=== PATIENT | female | born 1980 | race Caucasian/White ===

== ENCOUNTER 2016-05-23 22:48 | Emergency (ER) | payer SELFPAY ==
[2016-05-23] MEDS ORDERED: CYCLOBENZAPRINE HCL 10 MG TAB PO ONE (23:12)
[2016-05-23] MEDS ORDERED: KETOROLAC TROMETHAMINE INJ 30 MG/ML VIAL IM ONE (23:12)
[2016-05-23] MEDS ORDERED: predniSONE 20 MG TAB PO ONE (23:12)
--- NOTE | 2016-05-23 23:15 | ED.PDOC ---
History of Present Illness - General Chief Complaint: Cardiovascular Problem Stated Complaint: chest pain Time Seen by Provider: 05/23/16 22:52 Source: patient Exam Limitations: no limitations - History of Present Illness Initial Comments: The patient is a 35-year-old female presenting with pain in the distribution of the right trapezius muscle present for 3 days and worsening. She has had frequent flares of spasm in this muscle in the past. No recent trauma. No fevers. She has developed a mild headache after 2 days of the muscle spasm. No syncope or near syncope. No neurological changes otherwise. No weakness. Muscle is in obvious spasm almost throughout. Severity: moderate Improving Factors: immobilization Worsening Factors: movement Associated Symptoms: headaches Allergies/Adverse Reactions: Allergies Amoxicillin [From Amoxil] Allergy (Verified 05/23/16 22:50) Penicillins Allergy (Verified 05/23/16 22:50) Home Medications: Ambulatory Orders Sulfa/Trimeth 800/160 (Ds) Tab [Bactrim DS Tab] 1 ea PO BID #20 tab 03/02/15 Rnlmpruhjuuhn-Huxb-Unbnahiemt [Fioricet] 1 ea PO Q8H PRN #21 tab 05/23/16 Cyclobenzaprine HCl [Flexeril] 5 mg PO TID PRN #30 tab 05/23/16 Review of Systems - Review of Systems Constitutional: States: no symptoms reported EENTM: States: no symptoms reported Respiratory: States: no symptoms reported Cardiology: States: no symptoms reported Gastrointestinal/Abdominal: States: no symptoms reported Genitourinary: States: no symptoms reported Musculoskeletal: States: see HPI Skin: States: no symptoms reported Neurological: States: headache All other Systems: No Change from Baseline Past Medical History (General) - Patient Medical History Hx Seizures: No Hx Stroke: No Hx Dementia: No Hx Asthma: Yes Hx of COPD: Yes Hx Cardiac Disorders: No Hx Congestive Heart Failure: No Hx Pacemaker: No Hx Hypertension: Yes Hx Thyroid Disease: No Hx Diabetes: No Hx Gastroesophageal Reflux: No Hx Renal Disease: No Hx Cancer: No Hx of HIV: No Hx Hepatitis C: No Hx MRSA: No - Vaccination History Hx Tetanus, Diphtheria Vaccination: No Hx Influenza Vaccination: No Hx Pneumococcal Vaccination: No - Social History Hx Tobacco Use: Yes Hx Chewing Tobacco Use: No Hx Alcohol Use: Yes Hx Substance Use: Yes Hx Substance Use Treatment: No Hx Depression: Yes Hx Physical Abuse: No Hx Emotional Abuse: No Hx Suspected Abuse: No - Female History Hx Last Menstrual Period: 10/17/14 Patient : No Family Medical History - Family History Mother Living Status: Still Living Hx Family Hypertension: Yes Hx Family Diabetes: Yes - hypoglycemic Hx Family Cancer: Yes Physical Exam - Physical Exam General Appearance: Alert, No apparent distress Eye Exam: bilateral normal Ears, Nose, Throat: normal ENT inspection, normal pharynx Neck: full range of motion, supple, normal inspection Respiratory: chest non-tender, lungs clear, normal breath sounds, no respiratory distress, no accessory muscle use Cardiovascular/Chest: normal peripheral pulses, regular rate, rhythm, no edema Peripheral Pulses: radial,right: 2+, radial,left: 2+ Gastrointestinal/Abdominal: non tender, soft - morbidly obese Rectal Exam: deferred Back Exam: other - see history of present illness. No bruising. No deformity. Trapezius muscle on the right is diffusely tender to palpation with significant spasm present. Difficult to tell if there is underlying rhomboid spasm Extremity: normal range of motion, non-tender, normal inspection, no pedal edema , no calf tenderness, normal capillary refill Neurologic: alert, normal mood/affect, oriented x 3 Skin Exam: normal color Progress - Progress Progress: 05/23/16 23:16 the patient is a 35-year-old female presenting with right-sided trapezius muscle spasm. She was given a dose of Flexeril, Fioricet, Toradol and prednisone. She will be written for an outpatient prescription for Flexeril and Fioricet for as needed use. She can use Aleve twice daily as well with food. She needs to keep well-hydrated. She needs to follow-up with her primary care doctor early this coming week. She does need to stretch out the muscle as best as possible. Topical heat or a warm shower may also help as well. Departure - Departure Clinical Impression: Trapezius muscle spasm Disposition: Discharge to Home or Self Care Condition: Good Departure Forms: ED Discharge - Pt. Copy, Patient Portal Self Enrollment Instructions: DI for Muscle Strain Diet: regular diet Activity: increase activity as tolerated Prescriptions: Bnolckjwxfgwv-Mxko-Dvvvkvsoou [Fioricet] 1 ea PO Q8H PRN #21 tab PRN Reason: Pain Cyclobenzaprine HCl [Flexeril] 5 mg PO TID PRN #30 tab PRN Reason: Muscle Spasms Home Medications: Ambulatory Orders Sulfa/Trimeth 800/160 (Ds) Tab [Bactrim DS Tab] 1 ea PO BID #20 tab 03/02/15 Hdironeupsetn-Mbts-Bnmputiwix [Fioricet] 1 ea PO Q8H PRN #21 tab 05/23/16 Cyclobenzaprine HCl [Flexeril] 5 mg PO TID PRN #30 tab 05/23/16 Additional Instructions: the patient is a 35-year-old female presenting with right-sided trapezius muscle spasm. She was given a dose of Flexeril, Fioricet, Toradol and prednisone. She will be written for an outpatient prescription for Flexeril and Fioricet for as needed use. She can use Aleve twice daily as well with food. She needs to keep well-hydrated. She needs to follow-up with her primary care doctor early this coming week. She does need to stretch out the muscle as best as possible. Topical heat or a warm shower may also help as well.
[2016-05-23] MEDS ORDERED: ACETAMINOPHEN-CAFF-BUTALBITAL 1 EA TAB PO SCH (23:30)
[2016-05-24 00:24] VITALS: BP 140/86; TEMP 98.4; O2SAT 96
== END 2016-05-24 00:24 | disposition home or self-care (01) ==
LOC: ER 22:48
DX: M62.838 Other muscle spasm (principal); Z88.0 Allergy status to penicillin; Z88.3 Allergy status to other anti-infective agents; J44.9 Chronic obstructive pulmonary disease, unspecified; I10 Essential (primary) hypertension; Z87.891 Personal history of nicotine dependence; F32.9 Major depressive disorder, single episode, unspecified
CPT/HCPCS: 93005; J1885; J7512

== ENCOUNTER 2016-06-03 10:18 | Emergency (ER) | payer SELFPAY ==
--- NOTE | 2016-06-03 11:13 | ED.PDOC ---
History of Present Illness - General Chief Complaint: [employer] Problem Stated Complaint: excessive vaginal bleeding Time Seen by Provider: 06/03/16 11:05 Source: patient, RN notes reviewed, Vital Signs reviewed Exam Limitations: no limitations - History of Present Illness Initial Comments: Patient is a 35 y/o [id number] female with a history of BTL who has had heavy vaginal bleeding since yesterday. She is changing her pad about every 30 minutes. When she stands up, the blood gushes out and drains down her legs. She is having suprapubic pain--Severe, although patient is laying in cot comfortably. She does, however, appear to be in mild distress. Patient states her periods are usually regular, although her LMP is 04/09/2016. She had previously been on depo-provera, however her last shot was 2 years ago. She has had regular periods since. Timing/Duration: yesterday Quality: severe, cramping Onset Location: suprapubic Radiation: none Activites at Onset: none Prior abdominal problems: none Sexual intercourse history: less than 2 months ago, single partner Improving Factors: nothing Worsening Factors: movement Associated Symptoms: denies symptoms Allergies/Adverse Reactions: Allergies Amoxicillin [From Amoxil] Allergy (Verified 05/23/16 22:50) Penicillins Allergy (Verified 05/23/16 22:50) Home Medications: Ambulatory Orders Medroxyprogesterone Acetate [Medroxyprogesterone Aceta] 10 mg PO DAILY #10 tab 06/03/16 Naproxen [Naprosyn] 500 mg PO BID #30 tab 06/03/16 Review of Systems - Review of Systems Constitutional: States: no symptoms reported EENTM: States: no symptoms reported Respiratory: States: no symptoms reported Cardiology: States: no symptoms reported Gastrointestinal/Abdominal: States: abdominal pain - pelvic, nausea Genitourinary: States: other - excessive vaginal bleeding Musculoskeletal: States: no symptoms reported Skin: States: no symptoms reported Neurological: States: anxiety, headache Endocrine: States: no symptoms reported Hematologic/Lymphatic: States: no symptoms reported Past Medical History (General) - Patient Medical History Hx Seizures: No Hx Stroke: No Hx Dementia: No Hx Asthma: Yes Hx of COPD: Yes Hx Cardiac Disorders: No Hx Congestive Heart Failure: No Hx Pacemaker: No Hx Hypertension: Yes Hx Thyroid Disease: No Hx Diabetes: No Hx Gastroesophageal Reflux: No Hx Renal Disease: No Hx Cancer: No Hx of HIV: No Hx Hepatitis C: No Hx MRSA: No Surgical History: cholecystectomy - Vaccination History Hx Tetanus, Diphtheria Vaccination: No Hx Influenza Vaccination: No Hx Pneumococcal Vaccination: No - Social History Hx Tobacco Use: Yes Hx Chewing Tobacco Use: No Hx Alcohol Use: Yes Hx Substance Use: Yes Hx Substance Use Treatment: No Hx Depression: Yes Hx Physical Abuse: No Hx Emotional Abuse: No Hx Suspected Abuse: No - Female History Patient is a Female of Child Bearing Age (10 -59 yrs old): Yes Hx Last Menstrual Period: 10/17/14 Patient : No Family Medical History - Family History Mother Family History: Unknown Living Status: Still Living Hx Family Hypertension: Yes Hx Family Diabetes: Yes - hypoglycemic Hx Family Cancer: Yes Physical Exam - Physical Exam General Appearance: Anxious, Obvious distress - Mild, Obese Eyes, Ears, Nose, Throat Exam: normal ENT inspection Neck: full range of motion Cardiovascular/Respiratory: regular rate, rhythm, no M/R/G, normal breath sounds , no respiratory distress Gastrointestinal/Abdominal: normal bowel sounds, soft, no organomegaly, tenderness - suprapubic Pelvic Exam: active bleeding, tender w/ cervical motion, tender adnexa - Left, tender uterus Extremity: normal range of motion, non-tender, normal inspection Neurologic: alert, normal mood/affect, oriented x 3 Skin Exam: normal color, warm/dry Progress - Results/Orders Results/Orders: 06/03/16 10:28 Temperature 98.2 F Pulse Rate [ 83 Right Brachial] Respiratory 20 Rate Blood Pressure 149/110 [Right Arm] O2 Sat by Pulse 99 Oximetry 06/03/16 11:55 GC CHLAMYDIA RNA,TMA Stat Laboratory Results WBC 7.9 K/mm3 (4.8-10.8) 06/03/16 11:25 RBC 4.58 M/mm3 (4.20-5.40) 06/03/16 11:25 Hgb 10.3 gm/dL (12.0-16.0) L 06/03/16 11:25 Hct 32.6 % (36.0-47.0) L 06/03/16 11:25 MCV 71.1 fl (81.0-99.0) L 06/03/16 11:25 MCH 22.4 pg (27.0-31.0) L 06/03/16 11:25 MCHC 31.7 g/dL (33.0-37.0) L 06/03/16 11:25 RDW 17.3 % (11.5-14.5) H 06/03/16 11:25 Plt Count 213 K/mm3 (130-400) 06/03/16 11:25 MPV 8.1 fl (7.40-10.4) 06/03/16 11:25 Absolute Neuts (auto) 5.80 K/uL (1.8-6.8) 06/03/16 11:25 Absolute Lymphs (auto) 1.40 K/uL (1.0-3.4) 06/03/16 11:25 Absolute Monos (auto) 0.60 K/uL (0.2-0.8) 06/03/16 11:25 Absolute Eos (auto) 0.10 K/uL (0.0-0.4) 06/03/16 11:25 Absolute Basos (auto) 0.00 K/uL (0.0-0.1) 06/03/16 11:25 Neutrophils % 73.3 % (42.0-78.0) 06/03/16 11:25 Lymphocytes % 17.6 % (20.0-50.0) L 06/03/16 11:25 Monocytes % 7.1 % (2.0-9.0) 06/03/16 11:25 Eosinophils % 1.5 % (1.0-5.0) 06/03/16 11:25 Basophils % 0.5 % (0.0-2.0) 06/03/16 11:25 Sodium 137 mmol/L (135-145) 06/03/16 11:25 Potassium 3.8 mmol/L (3.6-5.0) 06/03/16 11:25 Chloride 106 mmol/L (101-111) 06/03/16 11:25 Carbon Dioxide 24 mmol/L (21-31) 06/03/16 11:25 Anion Gap 10.8 (12-18) L 06/03/16 11:25 BUN 16 mg/dL (7-18) 06/03/16 11:25 Creatinine 0.74 mg/dL (0.6-1.3) 06/03/16 11:25 BUN/Creatinine Ratio 21.6 (10-20) H 06/03/16 11:25 Random Glucose 82 mg/dL (70-105) 06/03/16 11:25 Serum Osmolality 274.1 mOsm/L (275-295) L 06/03/16 11:25 Calcium 8.7 mg/dL (8.4-10.2) 06/03/16 11:25 Total Bilirubin 0.6 mg/dL (0.2-1.0) 06/03/16 11:25 AST 15 IU/L (10-42) 06/03/16 11:25 ALT 13 IU/L (10-60) 06/03/16 11:25 Alkaline Phosphatase 73 IU/L (42-121) 06/03/16 11:25 Serum Total Protein 7.3 gm/dL (6.4-8.2) 06/03/16 11:25 Albumin 3.9 g/dl (3.2-5.5) 06/03/16 11:25 Globulin 3.4 gm/dL (2.3-3.5) 06/03/16 11:25 Albumin/Globulin Ratio 1.1 (1.1-1.9) 06/03/16 11:25 TSH 2.78 uIU/mL (0.34-5.60) 06/03/16 11:25 Urine Color Yellow (Yellow) 06/03/16 11:55 Urine Appearance Sl cloudy (Clear) 06/03/16 11:55 Urine pH 5.5 (4.5-7.8) 06/03/16 11:55 Ur Specific [place] 1.025 (1.005-1.030) 06/03/16 11:55 Urine Protein Negative mg/dL 06/03/16 11:55 Urine Glucose (UA) Negative mg/dL (Negative) 06/03/16 11:55 Urine Ketones Negative mg/dL (NEGATIVE) 06/03/16 11:55 Urine Blood Trace-intact (Negative) H 06/03/16 11:55 Urine Nitrite Negative 06/03/16 11:55 Urine Bilirubin Negative (NEGATIVE) 06/03/16 11:55 Urine Urobilinogen 0.2 mg/dL (0.2-1.0) 06/03/16 11:55 Ur Leukocyte Esterase Negative (Negative) 06/03/16 11:55 Urine RBC 1-3 /hpf 06/03/16 11:55 Urine WBC 0-1 /hpf 06/03/16 11:55 Ur Epithelial Cells 3-5 /hpf 06/03/16 11:55 Amorphous Sediment 2+ 06/03/16 11:55 Urine Bacteria Rare 06/03/16 11:55 Urine Mucus Moderate 06/03/16 11:55 Urine HCG, Qual Negative 06/03/16 12:49 Departure - Departure Clinical Impression: Dysfunctional uterine bleeding, Pelvic inflammatory disease (PID) Time of Disposition: 14:56 Disposition: Discharge to Home or Self Care Condition: Fair Departure Forms: ED Discharge - Pt. Copy, Patient Portal Self Enrollment Diet: low fat, low cholesterol Referrals: To [facility] MD [Active Staff] - 1-2 Weeks Prescriptions: Medroxyprogesterone Acetate [Medroxyprogesterone Aceta] 10 mg PO DAILY #10 tab Naproxen [Naprosyn] 500 mg PO BID #30 tab Home Medications: Ambulatory Orders Medroxyprogesterone Acetate [Medroxyprogesterone Aceta] 10 mg PO DAILY #10 tab 06/03/16 Naproxen [Naprosyn] 500 mg PO BID #30 tab 06/03/16 Additional Instructions: Follow up for any dizziness, shortness of breath, chest pain, or pelvic pain that is excruciating. Stay well-hydrated. Follow up with [facility] in 1-2 weeks.
[2016-06-03] MEDS: SODIUM CHLORIDE 0.9% 1000ML 1,000 ML IVS ONE (13:48)
[2016-06-03] MEDS: KETOROLAC TROMETHAMINE INJ 30 MG/ML VIAL IV ONE (13:51)
[2016-06-03] MEDS ORDERED: SODIUM CHL 0.9% 50ML MIN-BAG+ 50 ML IVPB ONE (14:01)
[2016-06-03] MEDS: AZITHROMYCIN 250 MG TAB PO ONE (14:04)
[2016-06-03] MEDS: cefTRIAXone SODIUM 250 MG in SODIUM CHL 0.9% 50ML MIN-BAG+ 50 ML IVPB ONE (14:05)
[2016-06-03 15:28] VITALS: BP 138/94; TEMP 97.4; O2SAT 95
== END 2016-06-03 15:41 | disposition home or self-care (01) ==
LOC: ER 10:18
DX: N93.8 Other specified abnormal uterine and vaginal bleeding (principal); N73.9 Female pelvic inflammatory disease, unspecified; J44.9 Chronic obstructive pulmonary disease, unspecified; I10 Essential (primary) hypertension; Z88.0 Allergy status to penicillin; Z88.3 Allergy status to other anti-infective agents; Z87.891 Personal history of nicotine dependence

== ENCOUNTER 2018-01-11 22:16 | Emergency (ER) | payer SELFPAY ==
[2018-01-11 22:37] VITALS: TEMP 98.1; O2SAT 98
[2018-01-11] MEDS ORDERED: CLINDAMYCIN PHOSPHATE 150 MG/ML VIAL IM ONE (23:14)
[2018-01-11] MEDS ORDERED: KETOROLAC TROMETHAMINE INJ 60 MG/2 ML VIAL IM ONE (23:14)
--- NOTE | 2018-01-11 23:18 | ED.PDOC ---
History of Present Illness - General Chief Complaint: Dental/Mouth Stated Complaint: swollen jaw Time Seen by Provider: 01/11/18 23:09 Source: patient Exam Limitations: no limitations - History of Present Illness Initial Comments: R SIDED TOOTHACHE X 2 D. Timing/Duration: gradual Severity: severe EENT Location: mouth Prearrival Treatment: no prearrival treatment Improving Factors: nothing Worsening Factors: eating Associated Symptoms: denies symptoms Allergies/Adverse Reactions: Allergies Amoxicillin [From Amoxil] Allergy (Verified 05/23/16 22:50) Penicillins Allergy (Verified 05/23/16 22:50) Home Medications: Ambulatory Orders Blood Pressure Med 01/11/18 Clindamycin HCl 300 mg PO Q8H 7 Days #21 cap 01/11/18 Gabapentin [Neurontin] 01/11/18 Ibuprofen 800 mg PO TID PRN #21 tab 01/11/18 Review of Systems - Review of Systems Constitutional: States: no symptoms reported EENTM: States: other - TOOTHACHE. Denies: eye pain, ear pain, nose pain, throat pain Respiratory: States: no symptoms reported Cardiology: States: no symptoms reported Gastrointestinal/Abdominal: States: no symptoms reported Genitourinary: States: no symptoms reported Musculoskeletal: States: no symptoms reported Skin: States: no symptoms reported Neurological: States: no symptoms reported Endocrine: States: no symptoms reported Hematologic/Lymphatic: States: no symptoms reported All other Systems: Reviewed and Negative Past Medical History (General) - Patient Medical History Hx Seizures: No Hx Stroke: No Hx Dementia: No Hx Asthma: Yes Hx of COPD: Yes Hx Cardiac Disorders: No Hx Congestive Heart Failure: No Hx Pacemaker: No Hx Hypertension: Yes Hx Thyroid Disease: No Hx Diabetes: No Hx Gastroesophageal Reflux: No Hx Renal Disease: No Hx Cancer: No Hx of HIV: No Hx Hepatitis C: No Hx MRSA: No Surgical History: cholecystectomy - Vaccination History Hx Tetanus, Diphtheria Vaccination: No Hx Influenza Vaccination: No Hx Pneumococcal Vaccination: No Immunizations Up to Date: No - Social History Hx Tobacco Use: Yes Hx Chewing Tobacco Use: No Hx Alcohol Use: Yes Hx Substance Use: Yes Hx Substance Use Treatment: No Hx Depression: Yes Hx Physical Abuse: No Hx Emotional Abuse: No Hx Suspected Abuse: No - Female History Patient is a Female of Child Bearing Age (10 -59 yrs old): Yes Hx Last Menstrual Period: 10/17/14 Patient : No Family Medical History - Family History Mother Family History: Unknown Living Status: Still Living Hx Family Hypertension: Yes Hx Family Diabetes: Yes - hypoglycemic Hx Family Cancer: Yes Physical Exam - Physical Exam General Appearance: Alert, Obese Eye Exam: bilateral normal Ear Exam: bilateral ear: TM normal Nasal Exam: normal inspection Throat Exam: pharynx normal, dental tenderness, other - POOR DENTITION. GENERAL TOOTH DECAY, DENTAL CARIES, AND CHIPPED TEETH THROUGHOUT MOUTH. SPECIFICALLY TONIGHT, R INCISOR TOOTH #7 EXQUISITELY TTP. NO ABSCESS. Neck: non-tender, full range of motion, supple Progress - Progress Progress: 01/11/18 23:26 R INCISOR, TOOTH #7 ACUTE DENTAL CARIES. TOOTHACHE, GENERAL CARIES AND GINGIVITIS. POOR DENTITION. I RECOMMENDED SEEING A DENTIST, LEST SHE WILL START LOSING HER TEETH. Departure - Departure Clinical Impression: Toothache, Dental caries, Gingivitis Disposition: Discharge to Home or Self Care Condition: Good Departure Forms: ED Discharge - Pt. Copy, Patient Portal Self Enrollment Instructions: DI for Dental Pain Diet: resume usual diet Activity: increase activity as tolerated Prescriptions: Clindamycin HCl 300 mg PO Q8H 7 Days #21 cap Ibuprofen 800 mg PO TID PRN #21 tab PRN Reason: Pain Home Medications: Ambulatory Orders Blood Pressure Med 01/11/18 Clindamycin HCl 300 mg PO Q8H 7 Days #21 cap 01/11/18 Gabapentin [Neurontin] 01/11/18 Ibuprofen 800 mg PO TID PRN #21 tab 01/11/18 Additional Instructions: Please see a dentist for further care.
[2018-01-11 23:52] VITALS: BP 166/90
== END 2018-01-11 23:52 | disposition home or self-care (01) ==
LOC: ER 22:16
DX: K02.9 Dental caries, unspecified (principal); K05.10 Chronic gingivitis, plaque induced; F32.9 Major depressive disorder, single episode, unspecified; J44.9 Chronic obstructive pulmonary disease, unspecified; I10 Essential (primary) hypertension; Z87.891 Personal history of nicotine dependence; Z79.899 Other long term (current) drug therapy; Z88.0 Allergy status to penicillin
CPT/HCPCS: J1885; J3490

== ENCOUNTER 2018-05-20 17:35 | Emergency (ER) | payer SELFPAY ==
[2018-05-20 18:00] VITALS: TEMP 97.8; O2SAT 100
[2018-05-20] MEDS ORDERED: LABETALOL INJ 5 MG/ML VIAL IV ONE (18:13)
[2018-05-20] MEDS ORDERED: amLODIPine BESYLATE 5 MG TAB PO ONE (18:13)
--- NOTE | 2018-05-20 18:14 | ED.PDOC ---
History of Present Illness - General Chief Complaint: Blood Pressure Problem Stated Complaint: Elevated BP, headache Time Seen by Provider: 05/20/18 17:55 Source: patient Exam Limitations: no limitations - History of Present Illness Initial Comments: Diane Navarrete 37 y/o female came to ER stateg that she ran out of her blood pressure medications Lisinopril/HCTZ for a month stating could not afford her medications.Today has note blood pressure been up and with dull headache top of head non radiating.No n/v,no blurry vision,no diplopia ,no chest pain /SOB, Timing/Duration: 4-6 hours Severity: moderate Improving Factors: nothing Worsening Factors: nothing Associated Symptoms: headaches Allergies/Adverse Reactions: Allergies Amoxicillin [From Amoxil] Allergy (Verified 05/20/18 18:34) Penicillins Allergy (Verified 05/20/18 18:34) Home Medications: Ambulatory Orders Gabapentin [Neurontin] 300 mg PO TID 01/11/18 Ibuprofen 800 mg PO TID PRN #21 tab 01/11/18 Lisinopril & Hydrochlorothiazi [Lisinopril/Hctz 20-25 mg] 1 tab PO ACBK #30 tab 05/20/18 Lisinopril & Hydrochlorothiazi [Lisinopril/Hctz 20-25 mg] 1 tab PO DAILY 05/20/18 Review of Systems - Review of Systems Constitutional: States: no symptoms reported EENTM: States: no symptoms reported Respiratory: States: no symptoms reported Cardiology: States: no symptoms reported Gastrointestinal/Abdominal: States: no symptoms reported Neurological: States: headache Hematologic/Lymphatic: States: no symptoms reported All other Systems: Reviewed and Negative, No Change from Baseline Past Medical History (General) - Patient Medical History Hx Seizures: No Hx Stroke: No Hx Dementia: No Hx Asthma: Yes Hx of COPD: Yes Hx Cardiac Disorders: No Hx Congestive Heart Failure: No Hx Pacemaker: No Hx Hypertension: Yes Hx Thyroid Disease: No Hx Diabetes: No Hx Gastroesophageal Reflux: No Hx Renal Disease: No Hx Cancer: No Hx of HIV: No Hx Hepatitis C: No Hx MRSA: No Hx Other PMH: Yes - ? neuropathy Surgical History: cholecystectomy, other - ,ankle - Vaccination History Hx Tetanus, Diphtheria Vaccination: No Hx Influenza Vaccination: No Hx Pneumococcal Vaccination: No - Social History Hx Tobacco Use: Yes Years Tobacco Use: 18 Hx Chewing Tobacco Use: No Hx Alcohol Use: Yes Hx Substance Use: Yes Hx Substance Use Treatment: No Hx Depression: Yes Hx Physical Abuse: No Hx Emotional Abuse: No Hx Suspected Abuse: No - Activities of Daily Living Patient Lives Alone: No - Female History Patient is a Female of Child Bearing Age (10 -59 yrs old): Yes Hx Last Menstrual Period: 05/09/18 Patient : No Family Medical History - Family History Mother Family History: Unknown Living Status: Still Living Hx Family Hypertension: Yes Hx Family Diabetes: Yes - hypoglycemic Hx Family Cancer: Yes - mom and sister-cancer cervix Hx Family;Other: chronic anemia-mom ? thallasemia. Physical Exam - Physical Exam General Appearance: Alert, Comfortable, No apparent distress Eye Exam: bilateral normal, bilateral other - optic fundus clear disc margins Ears, Nose, Throat: hearing grossly normal, normal ENT inspection, normal pharynx Neck: non-tender, supple, normal inspection Respiratory: chest non-tender, lungs clear, normal breath sounds, no respiratory distress Cardiovascular/Chest: normal peripheral pulses, regular rate, rhythm, no murmur Peripheral Pulses: radial,right: 2+, radial,left: 2+, dorsalis pedis,right: 2+, dorsalis pedis,left: 2+ Gastrointestinal/Abdominal: normal bowel sounds, non tender, soft, no organomegaly Back Exam: no CVA tenderness, no vertebral tenderness Extremity: no pedal edema, no calf tenderness Neurologic: no motor/sensory deficits, alert, oriented x 3 Skin Exam: normal color, warm/dry Progress - Progress Progress: 05/20/18 18:31 Vital Signs - 8 hr 05/20/18 17:45 Temperature 97.8 F Pulse Rate [ 84 Left Radial] Respiratory 18 Rate Blood Pressure 186/112 [Left Arm] O2 Sat by Pulse 100 Oximetry 05/20/18 19:51 Patient stated that she will be Moving to [place] given # for [facility] - Results/Orders Results/Orders: Vital Signs - 8 hr 05/20/18 05/20/18 17:45 19:12 Temperature 97.8 F Pulse Rate [ 84 88 Left Radial] Respiratory 18 18 Rate Blood Pressure 186/112 163/101 [Left Arm] O2 Sat by Pulse 100 100 Oximetry 05/20/18 18:15 EKG STAT 05/21/18 09:00 hydroCHLOROthiazide 25 mg PO DAILY Laboratory Results - last 24 hr 05/20/18 05/20/18 05/20/18 18:11 18:15 18:15 WBC 7.4 RBC 4.28 Hgb 8.9 L Hct 28.4 L MCV 66.3 L MCH 20.7 L MCHC 31.5 L RDW 17.3 H Plt Count 267 MPV 8.1 Absolute Neuts (auto) 5.70 Absolute Lymphs (auto) 1.10 Absolute Monos (auto) 0.50 Absolute Eos (auto) 0.10 Absolute Basos (auto) 0.00 Neutrophils % 76.6 Lymphocytes % 14.9 L Monocytes % 6.9 Eosinophils % 1.2 Basophils % 0.4 RBC Morphology Plts sharla adequate PT 10.5 INR 1.05 PTT (SP) 24.4 Sodium 135 Potassium 3.6 Chloride 103 Carbon Dioxide 25 Anion Gap 10.6 L BUN 8 Creatinine 0.62 BUN/Creatinine Ratio 12.9 Random Glucose 90 Serum Osmolality 268.0 L Calcium 9.0 Magnesium 2.2 Total Bilirubin 0.9 Direct Bilirubin 0.2 Indirect Bilirubin 0.7 AST 23 ALT 21 Alkaline Phosphatase 81 Creatine Kinase 93 CK-MB (CK-2) 4.5 H CK-MB (CK-2) % Not Reportable Troponin I < 0.02 Serum Total Protein 7.6 Albumin 3.8 Serum HCG, Qual Negative Urine Color Urine Appearance Urine pH Ur Specific [place] Urine Protein Urine Glucose (UA) Urine Ketones Urine Blood Urine Nitrite Urine Bilirubin Urine Urobilinogen Ur Leukocyte Esterase Urine RBC Urine WBC Ur Epithelial Cells Urine Bacteria Urine Opiates Screen Negative Urine Barbiturates Negative Ur Phencyclidine Scrn Negative U Amphetamin/Meth Scrn Positive H U Benzodiazepines Scrn Negative U Cocaine Metab Screen Negative U Cannabinoids Screen Negative 05/20/18 19:23 WBC RBC Hgb Hct MCV MCH MCHC RDW Plt Count MPV Absolute Neuts (auto) Absolute Lymphs (auto) Absolute Monos (auto) Absolute Eos (auto) Absolute Basos (auto) Neutrophils % Lymphocytes % Monocytes % Eosinophils % Basophils % RBC Morphology PT INR PTT (SP) Sodium Potassium Chloride Carbon Dioxide Anion Gap BUN Creatinine BUN/Creatinine Ratio Random Glucose Serum Osmolality Calcium Magnesium Total Bilirubin Direct Bilirubin Indirect Bilirubin AST ALT Alkaline Phosphatase Creatine Kinase CK-MB (CK-2) CK-MB (CK-2) % Troponin I Serum Total Protein Albumin Serum HCG, Qual Urine Color Yellow Urine Appearance Clear Urine pH 7.0 Ur Specific [place] 1.010 Urine Protein Negative Urine Glucose (UA) Negative Urine Ketones Negative Urine Blood Negative Urine Nitrite Negative Urine Bilirubin Negative Urine Urobilinogen 0.2 Ur Leukocyte Esterase Trace H Urine RBC 0-1 Urine WBC 3-5 H Ur Epithelial Cells 3-5 Urine Bacteria Rare Urine Opiates Screen Urine Barbiturates Ur Phencyclidine Scrn U Amphetamin/Meth Scrn U Benzodiazepines Scrn U Cocaine Metab Screen U Cannabinoids Screen Discuss test results with patient and stated that she has anemia which she had when she was 13 y/o and also noted that she has heavy menstrual period;advised to see Consumer Credit Counselor and need to follow with primary Md - EKG/XRAY/CT EKG: Sinus, no ST T wave changes, Unchanged from 23 May 2016 Comments: HR-62;motion artifact CT Ordered: Yes - head-no acute abnormality Departure - Departure Clinical Impression: Hypertension Qualifiers: Hypertension type: unspecified Qualified Code(s): I10 - Essential (primary) hypertension Anemia Qualifiers: Anemia type: iron deficiency Iron deficiency anemia type: unspecified iron deficiency Qualified Code(s): D50.9 - Iron deficiency anemia, unspecified Time of Disposition: 19:49 Disposition: Discharge to Home or Self Care Condition: Fair Departure Forms: ED Discharge - Pt. Copy, Patient Portal Self Enrollment Instructions: DI for High Blood Pressure, Beta Thalassemia Major, Anemia Caused by Low Iron, Anemia Caused by Low Iron, Adult (DC) Prescriptions: Lisinopril & Hydrochlorothiazi [Lisinopril/Hctz 20-25 mg] 1 tab PO ACBK #30 tab Home Medications: Ambulatory Orders Gabapentin [Neurontin] 300 mg PO TID 01/11/18 Ibuprofen 800 mg PO TID PRN #21 tab 01/11/18 Lisinopril & Hydrochlorothiazi [Lisinopril/Hctz 20-25 mg] 1 tab PO ACBK #30 tab 05/20/18 Lisinopril & Hydrochlorothiazi [Lisinopril/Hctz 20-25 mg] 1 tab PO DAILY 05/20/18 Additional Instructions: Sign up with primary Md at [facility] [facility] [place] [address] ph# [phone] if moving to [place], [place];Return to ER as needed
[2018-05-20] MEDS ORDERED: LISINOPRIL 10 MG TAB PO ONE (19:05)
[2018-05-20] MEDS ORDERED: hydroCHLOROthiazide 25 MG TAB ONE (19:14)
--- NOTE | 2018-05-20 19:35 | CT ---
EXAM DESCRIPTION: Head CLINICAL HISTORY: 37 years Female headache/HBP COMPARISON: CT head 12/10/2010 TECHNIQUE: Contiguous axial images of the brain were obtained without the administration of intravenous contrast. This exam was performed according to our departmental dose-optimization program, which includes automated exposure control, adjustment of the mA and/or kV according to patient size and/or use of iterative reconstruction technique. Motion artifact mildly compromises some images. FINDINGS: The ventricles are normal in size and configuration. No intracerebral or extracerebral mass lesions are identified. There is mild prominence of sulci, cerebellar folia, and basilar cisterns as well as moderate prominence of the frontal subarachnoid spaces or a patient of this age. Underwood/white matter distinction is maintained. There is no shift of the midline structures. There is no evidence of intracranial hemorrhage. There is no evidence of acute territorial infarct. (It should be noted that acute infarct may not be discernible in the first [address] ) A tiny hypodensity along the caudal aspect of the left lentiform nucleus may represent a remote tiny lacunar infarct or prominent perivascular space. It was present on the previous study. There is atherosclerotic calcification in the siphon of the left internal carotid artery. There is no acute calvarial abnormality. There is a polypoid focus in the right maxillary sinus consistent with a benign sinus mucous retention cyst, polyp or polypoid mucosal thickening. Minimal mucosal thickening is also evident in the left maxillary sinus The remainder of the visualized paranasal sinuses are clear. The mastoids and middle ears are clear. IMPRESSION: No acute intracranial abnormality. (It should be noted that acute infarct may not be discernible in the first [address]) a follow-up head ct or mri is recommended if neurologic symptoms persist. Volume loss, greater than expected for age, can occur in patient's with history of alcohol abuse or chronic use of certain medications such as dilantin. ASVD. Remainder of findings as discussed above. Electronically signed by: Sandra Arechiga MD 05/20/2018 7:32 PM BACTERIOLOGY TEACHER
[2018-05-20 20:09] VITALS: BP 181/106
[2018-05-21] MEDS ORDERED: hydroCHLOROthiazide 25 MG TAB PO SCH (09:00)
== END 2018-05-20 20:08 | disposition home or self-care (01) ==
LOC: ER 17:35
DX: I10 Essential (primary) hypertension (principal); D50.9 Iron deficiency anemia, unspecified; R51 Headache; F32.9 Major depressive disorder, single episode, unspecified; J44.9 Chronic obstructive pulmonary disease, unspecified; Z87.891 Personal history of nicotine dependence; Z88.0 Allergy status to penicillin; Z79.899 Other long term (current) drug therapy

== ENCOUNTER 2018-10-14 12:06 | Emergency (ER) | payer SELFPAY ==
[2018-10-14] MEDS ORDERED: MORPHINE SULFATE INJ 10 MG/ML VIAL IV ONE (13:13)
[2018-10-14] MEDS ORDERED: ONDANSETRON INJ 4 MG/2 ML VIAL IV ONE (13:13)
--- NOTE | 2018-10-14 13:28 | ED.PDOC ---
History of Present Illness - General Chief Complaint: Problem Stated Complaint: left flank pain, nausea Time Seen by Provider: 10/14/18 12:43 Source: patient, RN notes reviewed, Vital Signs reviewed Exam Limitations: no limitations - History of Present Illness Initial Comments: 38 yo female c/o left flank pain beginning today. No radiation or previous episodes. No aggravating or alleviating factors. Dysuria. Timing/Duration: this morning Quality: severe, aching, dull, steady Onset Location: left flank Radiation: none Activites at Onset: none Prior abdominal problems: none Improving Factors: nothing Worsening Factors: nothing Associated Symptoms: dysuria, nausea/vomiting Allergies/Adverse Reactions: Allergies Amoxicillin [From Amoxil] Allergy (Verified 05/20/18 18:34) Penicillins Allergy (Verified 05/20/18 18:34) Home Medications: Ambulatory Orders Gabapentin [Neurontin] 300 mg PO TID 01/11/18 Ibuprofen 800 mg PO TID PRN #21 tab 01/11/18 Lisinopril & Hydrochlorothiazi [Lisinopril/Hctz 20-25 mg] 1 tab PO ACBK #30 tab 05/20/18 Lisinopril & Hydrochlorothiazi [Lisinopril/Hctz 20-25 mg] 1 tab PO DAILY 05/20/18 Nitrofurantoin Monohydrate Mac [Macrobid] 100 mg PO BID 7 Days #14 capsule 10/14/18 Tramadol HCl 50 mg PO Q8H PRN 3 Days #9 tab 10/14/18 Review of Systems - Review of Systems Constitutional: States: no symptoms reported EENTM: States: no symptoms reported Respiratory: States: no symptoms reported Cardiology: States: no symptoms reported Gastrointestinal/Abdominal: States: see HPI Genitourinary: States: see HPI Musculoskeletal: States: see HPI Skin: States: no symptoms reported Neurological: States: no symptoms reported Hematologic/Lymphatic: States: no symptoms reported Past Medical History (General) - Patient Medical History Hx Seizures: No Hx Stroke: No Hx Dementia: No Hx Asthma: Yes Hx of COPD: Yes Hx Cardiac Disorders: No Hx Congestive Heart Failure: No Hx Pacemaker: No Hx Hypertension: Yes Hx Thyroid Disease: No Hx Diabetes: No Hx Gastroesophageal Reflux: No Hx Renal Disease: No Hx Cancer: No Hx of HIV: No Hx Hepatitis C: No Hx MRSA: No Surgical History: other - Vaccination History Hx Tetanus, Diphtheria Vaccination: No Hx Influenza Vaccination: No Hx Pneumococcal Vaccination: No - Social History Hx Tobacco Use: Yes Hx Chewing Tobacco Use: No Hx Alcohol Use: Yes Hx Substance Use: Yes Hx Substance Use Treatment: No Hx Depression: Yes Hx Physical Abuse: No Hx Emotional Abuse: No Hx Suspected Abuse: No - Female History Hx Last Menstrual Period: 05/09/18 Patient : No Family Medical History - Family History Mother Family History: Unknown Living Status: Still Living Hx Family Hypertension: Yes Hx Family Diabetes: Yes - hypoglycemic Hx Family Cancer: Yes - mom and sister-cancer cervix Hx Family;Other: chronic anemia-mom ? thallasemia. Physical Exam - Physical Exam General Appearance: Alert, No apparent distress, Other - uncomfortable Eyes, Ears, Nose, Throat Exam: normal ENT inspection Neck: supple Cardiovascular/Respiratory: regular rate, rhythm, no M/R/G, normal breath sounds, no respiratory distress Gastrointestinal/Abdominal: soft, no organomegaly Back Exam: CVA tenderness (L) Extremity: normal range of motion, normal inspection Neurologic: no motor/sensory deficits, alert, normal mood/affect, oriented x 3 Skin Exam: normal color, warm/dry Progress - Progress Progress: 10/14/18 16:05 Asleep. Says feeling much better. Will send urine culture. Macrobid. PCP f/u. - Results/Orders Results/Orders: WBC 8 UA: + WBCs, RBCs, LE; nit negative - EKG/XRAY/CT CT: No stone or pyelo. Does have a lung nodule. CT Ordered: Yes Departure - Departure Clinical Impression: Nodule of left lung Urinary tract infection Qualifiers: Urinary tract infection type: acute cystitis Hematuria presence: without hematuria Qualified Code(s): N30.00 - Acute cystitis without hematuria Back pain Qualifiers: Back pain location: low back pain Chronicity: acute Back pain laterality: left Sciatica presence: without sciatica Qualified Code(s): M54.5 - Low back pain Time of Disposition: 16:08 Disposition: Discharge to Home or Self Care Condition: Good Departure Forms: ED Discharge - Pt. Copy, Patient Portal Self Enrollment Instructions: DI for Urinary Tract Infection (UTI), Pulmonary Nodule Referrals: Bernice Bianchi CLINICAL SUPPORT MANAGER [Nurse Practitioner] - 10/19/18 Prescriptions: Nitrofurantoin Monohydrate Mac [Macrobid] 100 mg PO BID 7 Days #14 capsule Tramadol HCl 50 mg PO Q8H PRN 3 Days #9 tab PRN Reason: Moderate Pain Home Medications: Ambulatory Orders Gabapentin [Neurontin] 300 mg PO TID 01/11/18 Ibuprofen 800 mg PO TID PRN #21 tab 01/11/18 Lisinopril & Hydrochlorothiazi [Lisinopril/Hctz 20-25 mg] 1 tab PO ACBK #30 tab 05/20/18 Lisinopril & Hydrochlorothiazi [Lisinopril/Hctz 20-25 mg] 1 tab PO DAILY 05/20/18 Nitrofurantoin Monohydrate Mac [Macrobid] 100 mg PO BID 7 Days #14 capsule 10/14/18 Tramadol HCl 50 mg PO Q8H PRN 3 Days #9 tab 10/14/18
[2018-10-14] MEDS ORDERED: SODIUM CHLORIDE 0.9% 1000ML 1,000 ML IVS ONE (13:57)
--- NOTE | 2018-10-14 15:29 | CT ---
EXAM DESCRIPTION: Abdomen/Pelvis w/o Contrast: Computed Tomography. CLINICAL HISTORY: 38 years Female left flank pain. Started this morning. UTI. COMPARISON: CT scan abdomen and pelvis 12/02/2014. TECHNIQUE: Spiral-axial scans 5 x 5 mm intervals through the abdomen and pelvis without oral or IV contrast. Coronal and sagittal 2.0 mm reconstructions. Total Exam DLP: 945.51 mGy-cm. This exam was performed according to our departmental CT dose-optimization program which includes automated exposure control, adjustment of the mA and/or kV according to patient size and/or use of iterative reconstruction technique; to reduce radiation dose to as low as reasonably achievable (ALARA). FINDINGS: Lung bases and pleura: Calcified nodule less than 3 mm diameter left lower lobe abutting the pleura. Liver, stomach, spleen, and adrenal glands: Long axis right lobe liver 18.1 cm. Long axis of the spleen is 15.6 cm. Spleen is slightly more enlarged since the prior study. Other organs are negative. Pancreas, Gallbladder, and Ducts: Pancreas is difficult to visualize due to lack of surrounding fat. Surgical clips in the gallbladder fossa. Minimal dilation of the common bile duct. Kidneys and Ureters: Negative. Mesentery: Difficult to evaluate in the abdomen due to close proximity of the abdominal organs. No free fluid or free air. Aorta: Normal caliber of the outer lazo. Minimal periaortic fat. Small Bowel: Minimal fluid and gas throughout.. Distally more fluid with small air-fluid levels. Terminal Ileum/Cecum: Normal caliber. Cecum distended with gas. Appendix normal caliber containing mostly gas. No fatty stranding or fascial thickening. Colon : mostly fecal matter throughout the entire length with no significant distention and no air-fluid levels. Minimal distention proximally by gas. Pelvic Organs: Uterus not retroverted. Fluid in the endometrial cavity and the cervix. 2 cm cystic structure in the adnexa. Right ovary not well seen. Minimal fluid in the cul-de-sac. Minimal bladder wall thickening with no calcifications. Spine and Bony Pelvis: Minimal spondylosis in the included thoracic spine. Abdominal Wall/Back Soft Tissues: Small bilateral fatty inguinal hernias not containing bowel. IMPRESSION: 1. No radiodense stones in the bilateral kidneys ureters or in the urinary bladder. No hydronephrosis or hydroureter bilaterally. Bladder wall thickening which could represent cystitis. 2. Minimal distention of the distal small bowel with small air-fluid levels which may be due to small bowel enteritis. No free fluid. 3. 2 cm cyst in the left adnexa presumed to be within the ovary. Right ovary not well seen. Normal position of the uterus with minimal fluid in the cul-de-sac. 4. Liver and spleen are not enlarged. Spleen slightly larger than on the prior study. Electronically signed by: Tanmay Pak MD 10/14/2018 3:27 PM CDT
[2018-10-14 16:46] VITALS: BP 140/81; TEMP 97.1; O2SAT 100
== END 2018-10-14 16:40 | disposition home or self-care (01) ==
LOC: ER 12:06
DX: N30.00 Acute cystitis without hematuria (principal); M54.5 Low back pain; R91.1 Solitary pulmonary nodule; R11.2 Nausea with vomiting, unspecified; F32.9 Major depressive disorder, single episode, unspecified; J44.9 Chronic obstructive pulmonary disease, unspecified; I10 Essential (primary) hypertension; Z87.891 Personal history of nicotine dependence; Z79.899 Other long term (current) drug therapy; Z88.0 Allergy status to penicillin
CPT/HCPCS: 36415; 74176; 80053; 81001; 81025; 85025; 87086; J2270; J2405; J7030

== ENCOUNTER 2019-01-08 10:28 | Emergency (ER) | payer SELFPAY ==
--- NOTE | 2019-01-08 10:52 | ED.PDOC ---
History of Present Illness - General Chief Complaint: Abdominal Pain Stated Complaint: right sided abd pain,ear pain Time Seen by Provider: 01/08/19 10:36 - History of Present Illness Initial Comments: Pt is a 38 yo female with PSH of lap melia and ventral hernia repair that presents with family for RLQ pain that has been constant since last night. Pain is worse lying flat. Denies fever, NVD, dysuria, hematuria, frequency. States her LMP was 5 weeks ago and has been having irregular menstrual cycles. Also reports 1 week h/o left upper tooth pain and left ear pain. Denies fever, sore throat, congestion or cough. Has used Oragel on tooth with some improvement. Review of Systems - Review of Systems Constitutional: Denies: chills, fever, weakness EENTM: States: ear pain. Denies: eye pain, ear discharge, nose pain, nose congestion, throat pain, throat swelling Respiratory: Denies: cough, short of breath, wheezing Cardiology: Denies: chest pain, edema, syncope Gastrointestinal/Abdominal: States: abdominal pain. Denies: diarrhea, nausea, vomiting Genitourinary: Denies: dysuria, frequency, hematuria Musculoskeletal: Denies: back pain, joint pain All other Systems: Reviewed and Negative Past Medical History (General) - Patient Medical History Hx Seizures: No Hx Stroke: No Hx Dementia: No Hx Asthma: Yes Hx of COPD: Yes Hx Cardiac Disorders: No Hx Congestive Heart Failure: No Hx Pacemaker: No Hx Hypertension: Yes Hx Thyroid Disease: No Hx Diabetes: No Hx Gastroesophageal Reflux: No Hx Renal Disease: No Hx Cancer: No Hx of HIV: No Hx Hepatitis C: No Hx MRSA: No Surgical History: cholecystectomy - Vaccination History Hx Tetanus, Diphtheria Vaccination: No Hx Influenza Vaccination: No Hx Pneumococcal Vaccination: No - Social History Hx Tobacco Use: Yes Hx Chewing Tobacco Use: No Hx Alcohol Use: Yes Hx Substance Use: Yes Hx Substance Use Treatment: No Hx Depression: Yes Hx Physical Abuse: No Hx Emotional Abuse: No Hx Suspected Abuse: No - Female History Patient is a Female of Child Bearing Age (10 -59 yrs old): Yes Hx Last Menstrual Period: 05/09/18 Patient : No Family Medical History - Family History Mother Family History: Unknown Living Status: Still Living Hx Family Hypertension: Yes Hx Family Diabetes: Yes - hypoglycemic Hx Family Cancer: Yes - mom and sister-cancer cervix Hx Family;Other: chronic anemia-mom ? thallasemia. Physical Exam - Physical Exam General Appearance: Alert, No apparent distress, Obese, Well Hydrated Eyes, Ears, Nose, Throat Exam: TMs normal, pharynx normal, other - pt has multiple decayed teeth. left upper molar is TTP. No abscess seen. External ear canals have no erythema or edema Neck: full range of motion, supple Respiratory: lungs clear, normal breath sounds, no accessory muscle use Cardiovascular/Chest: regular rate, rhythm, no edema Gastrointestinal/Abdominal: soft, other - TTP RLQ. No guarding or rebound. No palpable masses Back Exam: no CVA tenderness Extremity: normal range of motion, non-tender, no calf tenderness Neurologic: alert, normal mood/affect Skin Exam: normal color, warm/dry Progress - Progress Progress: 01/08/19 10:55 Luther Issa #[id number] 01/08/19 11:54 Pt presents with RLQ pain for 24 hours and right toothache. CT orered to evaluate for appendicitis vs other infection and is unremarkable. Labs and VS reassuring. Pain is improved and tolerating po fluids well. Will treat for dental infection and f/u with dentist within 1 week for definitive care. Abdominal return precautions given and will f/u with PCP and GI for continued evaluation. SRP given. Departure - Departure Clinical Impression: Dental caries, Toothache Abdominal pain Qualifiers: Abdominal location: right lower quadrant Qualified Code(s): R10.31 - Right lower quadrant pain Time of Disposition: 11:59 Disposition: Discharge to Home or Self Care Condition: Good Departure Forms: ED Discharge - Pt. Copy, Patient Portal Self Enrollment Instructions: DI for Abdominal Pain-Adult, Dental Pain (DC) Prescriptions: Acetaminophen W/ Codeine [Tylenol W/ CODEINE #3] 1 tablet PO Q6HR PRN #12 PRN Reason: Pain Clindamycin HCl [Cleocin] 300 mg PO Q6H 10 Days #40 capsule Home Medications: Ambulatory Orders Acetaminophen W/ Codeine [Tylenol W/ CODEINE #3] 1 tablet PO Q6HR PRN #12 01/08/19 Clindamycin HCl [Cleocin] 300 mg PO Q6H 10 Days #40 capsule 01/08/19 NK 01/08/19
[2019-01-08] MEDS: SODIUM CHLORIDE 0.9% 1000ML 1,000 ML IVS ONE (10:56)
[2019-01-08] MEDS: MORPHINE SULFATE INJ 10 MG/ML VIAL IV ONE (10:57)
[2019-01-08] MEDS: ONDANSETRON INJ 4 MG/2 ML VIAL IV ONE (10:57)
--- NOTE | 2019-01-08 11:49 | CT ---
CT ABDOMEN PELVIS WITHOUT IV CONTRAST Exam date: 01/08/2019 11:04 AM CDT Comparison: CT abdomen pelvis October 14, 2018 Indication: Right lower quadrant abdominal pain Technique: Multiple helical axial images were obtained through the abdomen and pelvis without intravenous contrast. Sagittal and coronal reformatted images are reviewed as well. All CT scans at this facility use dose modulation, iterative reconstruction, and/or weight-based dosing when appropriate to reduce radiation dose to as low as reasonably achievable. Findings: Lung bases: Unremarkable. Liver: Homogenous attenuation is demonstrated. Gallbladder/biliary: Cholecystectomy changes are again demonstrated. Mild prominence of the common bile duct is again noted which is nonspecific in the setting of prior cholecystectomy. Pancreas: Unremarkable. Spleen: Spleen measures 14.9 cm longitudinally and appears mildly enlarged, unchanged from prior study. Adrenals: Unremarkable. Kidneys and ureters: No evidence of renal or ureteral stones. No hydronephrosis. Bladder: Unremarkable. Pelvic organs: There is a 2.3 cm left ovarian cyst which is likely physiologic. Bowel: Colonic diverticula are present. No evidence of bowel obstruction. No bowel wall thickening. Appendix appears unremarkable. Peritoneum: No free air. No significant free fluid. Lymph nodes: Unremarkable. Vasculature: Unremarkable. Soft tissues: Unremarkable. Bones: Unremarkable. Impression: 1. No evidence for an acute process within the abdomen or pelvis. 2. Mildly enlarged spleen. Electronically signed by: Don Sutton MD 01/08/2019 11:46 AM CDT
[2019-01-08 12:25] VITALS: BP 169/80; TEMP 96.7; O2SAT 99
== END 2019-01-08 12:08 | disposition home or self-care (01) ==
LOC: ER 10:28
DX: R10.31 Right lower quadrant pain (principal); K02.9 Dental caries, unspecified; E66.9 Obesity, unspecified; I10 Essential (primary) hypertension; F32.9 Major depressive disorder, single episode, unspecified; J44.9 Chronic obstructive pulmonary disease, unspecified; Z90.49 Acquired absence of other specified parts of digestive tract; Z87.891 Personal history of nicotine dependence; Z68.34 Body mass index [BMI] 34.0-34.9, adult
CPT/HCPCS: 36415; 74176; 80053; 81001; 81025; 83690; 85025; J2270; J2405; J7030

== ENCOUNTER 2019-01-25 17:06 | Emergency (ER) | payer SELFPAY ==
[2019-01-25 17:19] VITALS: O2SAT 99
[2019-01-25] MEDS ORDERED: ONDANSETRON ODT 8 MG TAB SL ONE (17:22)
[2019-01-25] MEDS ORDERED: HYDROcodone 7.5MG/APAP 325MG 1 EA TAB PO ONE (17:22)
[2019-01-25] MEDS ORDERED: KETOROLAC TROMETHAMINE INJ 30 MG/ML VIAL IM ONE (17:22)
[2019-01-25] MEDS ORDERED: levoFLOXacin 500 MG TAB PO ONE (17:23)
[2019-01-25] MEDS ORDERED: predniSONE 20 MG TAB PO ONE (17:23)
--- NOTE | 2019-01-25 18:44 | ED.PDOC ---
History of Present Illness - General Chief Complaint: General Stated Complaint: headache, nausea, facial swelling Time Seen by Provider: 01/25/19 17:07 Source: patient Exam Limitations: no limitations - History of Present Illness Initial Comments: the patient is a 38-year-old female presenting to the emergency room secondary to left-sided facial swelling over the left maxillary sinus and nasal labial fold that started last night along with a mild headache which has progressed today and some associated nausea. No definite fevers. She does have multiple dental caries in the area that had been giving her pain. No vision changes. She does have the classic allergic shiner. No altered mental status. No nuchal rigidity. Lungs are clear. No abdominal tenderness to palpation. No rebound or peritoneal signs. Timing/Duration: 24 hours Severity: moderate Improving Factors: nothing Worsening Factors: nothing Associated Symptoms: headaches, loss of appetite, nausea/vomiting Allergies/Adverse Reactions: Allergies Amoxicillin [From Amoxil] Allergy (Verified 05/20/18 18:34) Penicillins Allergy (Verified 05/20/18 18:34) Home Medications: Ambulatory Orders Ondansetron Odt [Zofran ODT] 4 mg PO Q8HR PRN #5 tab 01/25/19 Sulfa/Trimeth 800/160 (Ds) Tab [Bactrim DS Tab] 1 ea PO BID #14 tab 01/25/19 levoFLOXacin [Levaquin] 500 mg PO DAILY #7 tab 01/25/19 Review of Systems - Review of Systems Constitutional: States: malaise EENTM: States: nose congestion, mouth pain Respiratory: States: no symptoms reported Cardiology: States: no symptoms reported Gastrointestinal/Abdominal: States: nausea Genitourinary: States: no symptoms reported Musculoskeletal: States: no symptoms reported Skin: States: no symptoms reported Neurological: States: headache Endocrine: States: no symptoms reported All other Systems: No Change from Baseline Past Medical History (General) - Patient Medical History Hx Seizures: No Hx Stroke: No Hx Dementia: No Hx Asthma: Yes Hx of COPD: Yes Hx Cardiac Disorders: No Hx Congestive Heart Failure: No Hx Pacemaker: No Hx Hypertension: Yes Hx Thyroid Disease: No Hx Diabetes: No Hx Gastroesophageal Reflux: No Hx Renal Disease: No Hx Cancer: No Hx of HIV: No Hx Hepatitis C: No Hx MRSA: No Surgical History: cholecystectomy, other - Vaccination History Hx Tetanus, Diphtheria Vaccination: No Hx Influenza Vaccination: No Hx Pneumococcal Vaccination: No - Social History Hx Tobacco Use: Yes Hx Chewing Tobacco Use: No Hx Alcohol Use: Yes Hx Substance Use: Yes Hx Substance Use Treatment: No Hx Depression: Yes Hx Physical Abuse: No Hx Emotional Abuse: No Hx Suspected Abuse: No - Female History Patient is a Female of Child Bearing Age (10 -59 yrs old): No Hx Last Menstrual Period: 05/09/18 Patient : No Family Medical History - Family History Mother Family History: Unknown Living Status: Still Living Hx Family Hypertension: Yes Hx Family Diabetes: Yes - hypoglycemic Hx Family Cancer: Yes - mom and sister-cancer cervix Hx Family;Other: chronic anemia-mom ? thallasemia. Physical Exam - Physical Exam General Appearance: Alert, No apparent distress - she does appear uncomfortable. Eye Exam: bilateral normal Ears, Nose, Throat: hearing grossly normal, normal pharynx, other - nares are red with clear rhinorrhea. She does have tenderness to palpation of the left maxillary sinus and some induration over the left nasolabial fold. She does have multiple dental caries causing her discomfort. 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 This is likely coming from an underlying maxillary sinusitis from dental caries. I believe this is also giving her her GI symptoms. She needs to keep herself well hydrated. She is going to be placed on Bactrim and Levaquin to cover for the infection issues. She needs to take these medications with food. She will also be written for Zofran to control any nausea. She can take some [id number] Pepcid as well for the next week or 2 to prevent further stomach upset from the medications. ER warnings are given for any significant worsening. She does need to see a dentist. Keep routine follow up with primary care doctor otherwise. gus [email or web address] [phone] Departure - Departure Clinical Impression: Facial cellulitis, Infected dental caries Gastritis Qualifiers: Gastritis type: unspecified gastritis Chronicity: acute Gastritis bleeding: without bleeding Qualified Code(s): K29.00 - Acute gastritis without bleeding Sinusitis Qualifiers: Sinusitis location: maxillary Chronicity: acute Disposition: Discharge to Home or Self Care Condition: Fair Departure Forms: ED Discharge - Pt. Copy, Patient Portal Self Enrollment Instructions: Cellulitis (Skin Infection), Child (DC), Tooth Decay, Adult (DC), Sinus Headache (DC), Sinusitis, Adult (DC) Diet: bland diet Activity: increase activity as tolerated Prescriptions: Ondansetron Odt [Zofran ODT] 4 mg PO Q8HR PRN #5 tab PRN Reason: Nausea--Moderate levoFLOXacin [Levaquin] 500 mg PO DAILY #7 tab Sulfa/Trimeth 800/160 (Ds) Tab [Bactrim DS Tab] 1 ea PO BID #14 tab Home Medications: Ambulatory Orders Ondansetron Odt [Zofran ODT] 4 mg PO Q8HR PRN #5 tab 01/25/19 Sulfa/Trimeth 800/160 (Ds) Tab [Bactrim DS Tab] 1 ea PO BID #14 tab 01/25/19 levoFLOXacin [Levaquin] 500 mg PO DAILY #7 tab 01/25/19 Additional Instructions: the patient is a 38-year-old female presenting to the emergency room secondary to a progressing mild facial cellulitis to the left nasolabial fold. This is likely coming from an underlying maxillary sinusitis from dental caries. I believe this is also giving her her GI symptoms. She needs to keep herself well hydrated. She is going to be placed on Bactrim and Levaquin to cover for the infection issues. She needs to take these medications with food. She will also be written for Zofran to control any nausea. She can take some [id number] Pepcid as well for the next week or 2 to prevent further stomach upset from the medications. ER warnings are given for any significant worsening. She does need to see a dentist. Keep routine follow up with primary care doctor otherwise. Motrin or Tylenol can be used for discomfort.
[2019-01-25 19:04] VITALS: BP 142/84; TEMP 98
== END 2019-01-25 19:04 | disposition home or self-care (01) ==
LOC: ER 17:06
DX: L03.211 Cellulitis of face (principal); K04.7 Periapical abscess without sinus; K02.9 Dental caries, unspecified; K29.00 Acute gastritis without bleeding; J01.00 Acute maxillary sinusitis, unspecified; F32.9 Major depressive disorder, single episode, unspecified; J44.9 Chronic obstructive pulmonary disease, unspecified; I10 Essential (primary) hypertension; Z87.891 Personal history of nicotine dependence; Z90.49 Acquired absence of other specified parts of digestive tract; Z88.0 Allergy status to penicillin
CPT/HCPCS: J1885; J7512

== ENCOUNTER 2019-04-17 13:26 | Emergency (ER) | payer SELFPAY ==
--- NOTE | 2019-04-17 14:05 | ED.PDOC ---
History of Present Illness - General Chief Complaint: General Time Seen by Provider: 04/17/19 14:00 Additional Information: The patient is a 38 year old F who presents to the ED complaining of facial pain and swelling. She reports that she has had nasal congestion for a week or so, symptoms worsened yesterday while at work when she developed worsening facial pain and swelling. She has been afebrile, denies dental pain. No headache, nausea/vomiting, shortness of breath or any other symptoms at this time. - History of Present Illness Timing/Duration: other - 2 days Severity: moderate Improving Factors: nothing Worsening Factors: nothing Associated Symptoms: other - facial pain Allergies/Adverse Reactions: Allergies Amoxicillin [From Amoxil] Allergy (Verified 05/20/18 18:34) Penicillins Allergy (Verified 05/20/18 18:34) Sulfa Antibiotics Allergy (Verified 04/17/19 13:52) Home Medications: Ambulatory Orders Acetamin W/Cod #3 Tab [Tylenol w/CODEINE #3] 1 ea PO Q4H PRN #20 tab 04/17/19 Clindamycin HCl 300 mg PO Q6HR 7 Days cap 04/17/19 Sertraline HCl [Zoloft] mg PO DAILY 04/17/19 Review of Systems - Review of Systems Constitutional: Denies: chills, fever EENTM: States: nose pain, nose congestion, other - sinus tenderness; facial pain Respiratory: Denies: cough, short of breath Cardiology: States: no symptoms reported Gastrointestinal/Abdominal: States: no symptoms reported Genitourinary: States: no symptoms reported Musculoskeletal: States: no symptoms reported Skin: States: no symptoms reported Neurological: States: no symptoms reported Endocrine: States: no symptoms reported Hematologic/Lymphatic: States: no symptoms reported All other Systems: Reviewed and Negative Past Medical History (General) - Patient Medical History Hx Seizures: No Hx Stroke: No Hx Dementia: No Hx Asthma: Yes Hx of COPD: Yes Hx Cardiac Disorders: No Hx Congestive Heart Failure: No Hx Pacemaker: No Hx Hypertension: Yes Hx Thyroid Disease: No Hx Diabetes: No Hx Gastroesophageal Reflux: No Hx Renal Disease: No Hx Cancer: No Hx of HIV: No Hx Hepatitis C: No Hx MRSA: No - Vaccination History Hx Tetanus, Diphtheria Vaccination: No Hx Influenza Vaccination: No Hx Pneumococcal Vaccination: No - Social History Hx Tobacco Use: Yes Hx Chewing Tobacco Use: No Hx Alcohol Use: Yes Hx Substance Use: Yes Hx Substance Use Treatment: No Hx Depression: Yes Hx Physical Abuse: No Hx Emotional Abuse: No Hx Suspected Abuse: No - Female History Hx Last Menstrual Period: 05/09/18 Patient : No Family Medical History - Family History Mother Family History: Unknown Living Status: Still Living Hx Family Hypertension: Yes Hx Family Diabetes: Yes - hypoglycemic Hx Family Cancer: Yes - mom and sister-cancer cervix Hx Family;Other: chronic anemia-mom ? thallasemia. Physical Exam - Physical Exam General Appearance: Alert, No apparent distress, Well Developed, Well Hydrated, Well Nourished Eye Exam: left other - mild periorbital edema, no erythema or induration Ears, Nose, Throat: hearing grossly normal, sinus pain/drainage - left maxillary sinus tenderness Neck: non-tender, full range of motion, supple, normal inspection Respiratory: lungs clear, no respiratory distress Neurologic: alert, normal mood/affect, oriented x 3 Progress - Progress Progress: 04/17/19 14:17 MDM Patient presents with left facial swelling and pain concerning for cellulitis. There is left maxillary sinus tenderness and there is poor dentition. She does not have any drainable fluid collection in the oropharynx, there is no swelling to the floor of the mouth or airway compromise. left face is diffusely edematous without induration or drainable collection. Suspect sinusitis vs dental source. Allergic to penicillins, will continue outpatient management with clindamycin and she will follow up with her PCP and dentistry. Home care instructions and return indications reviewed. Departure - Departure Clinical Impression: Facial cellulitis Time of Disposition: 14:00 Disposition: Discharge to Home or Self Care Condition: Good Departure Forms: ED Discharge - Pt. Copy, Patient Portal Self Enrollment Diet: resume usual diet Activity: increase activity as tolerated Referrals: Bernice Bianchi NP [Primary Care Provider] - 1-2 Weeks Prescriptions: Clindamycin HCl 300 mg PO Q6HR 7 Days cap Acetamin W/Cod #3 Tab [Tylenol w/CODEINE #3] 1 ea PO Q4H PRN #20 tab PRN Reason: Pain Home Medications: Ambulatory Orders Acetamin W/Cod #3 Tab [Tylenol w/CODEINE #3] 1 ea PO Q4H PRN #20 tab 04/17/19 Clindamycin HCl 300 mg PO Q6HR 7 Days cap 04/17/19 Sertraline HCl [Zoloft] mg PO DAILY 04/17/19
[2019-04-17 14:16] VITALS: BP 161/82; TEMP 98.2; O2SAT 98
== END 2019-04-17 14:15 | disposition home or self-care (01) ==
LOC: ER 13:26
DX: L03.211 Cellulitis of face (principal); J44.9 Chronic obstructive pulmonary disease, unspecified; I10 Essential (primary) hypertension; F32.9 Major depressive disorder, single episode, unspecified; Z88.0 Allergy status to penicillin; Z88.2 Allergy status to sulfonamides; Z87.891 Personal history of nicotine dependence; Z79.899 Other long term (current) drug therapy

== ENCOUNTER 2019-05-28 09:05 | Emergency (ER) | payer SELFPAY ==
[2019-05-28] MEDS ORDERED: methylPREDNISolone SODIUM SUC 125 MG/2 ML VIAL IM ONE (09:19)
--- NOTE | 2019-05-28 09:34 | RAD ---
PROCEDURE: XR Chest, 1 View CLINICAL INDICATION: The patient is 38 years old and is Female; sob MAIN TECHNIQUE: Frontal view of the chest. COMPARISON: 06/02/2015 FINDINGS: LUNGS: The lungs are clear and free of focal consolidation. PLEURAL SPACE: There is no pneumothorax. There are no pleural effusions noted. HEART: The heart size is top normal. MEDIASTINUM: The mediastinal contour is normal. BONES/JOINTS: No acute abnormality noted. There are degenerative changes of the spine identified. VASCULATURE: Pulmonary vasculature is not engorged. IMPRESSION: No active disease is seen in the chest. Electronically signed by: Jc Ying MD 05/28/2019 9:32 AM MANAGEMENT DEVELOPER
--- NOTE | 2019-05-28 09:39 | ED.PDOC ---
History of Present Illness - General Chief Complaint: Respiratory Problem Stated Complaint: Cough, congestion, chest tightness, sore throat Time Seen by Provider: 05/28/19 09:15 - History of Present Illness Comments: c/o having cough , sneezing , chest congestion associated with some wheezing , chest tightness and sob , no chest pain Cough Quality/Degree: moderate, dry cough Improving Factors: nothing Worsening Factors: nothing Associated Symptoms: cough, nasal congestion, shortness of breath, wheezing Allergies/Adverse Reactions: Allergies Amoxicillin [From Amoxil] Allergy (Verified 05/28/19 09:37) Penicillins Allergy (Verified 05/28/19 09:37) Sulfa Antibiotics Allergy (Verified 05/28/19 09:37) Home Medications: Ambulatory Orders Acetamin W/Cod #3 Tab [Tylenol w/CODEINE #3] 1 ea PO Q4H PRN #20 tab 04/17/19 Clindamycin HCl 300 mg PO Q6HR 7 Days cap 04/17/19 Sertraline HCl [Zoloft] mg PO DAILY 04/17/19 Albuterol Inhaler [Ventolin Hfa Inhaler] 2 puff INH Q4HR 10 Days inh 05/28/19 Azithromycin Tab [Zithromax] 500 mg PO QDAC #3 tab 05/28/19 Review of Systems - Review of Systems Constitutional: States: no symptoms reported EENTM: States: no symptoms reported Respiratory: States: see HPI Cardiology: States: no symptoms reported Gastrointestinal/Abdominal: States: no symptoms reported Genitourinary: States: no symptoms reported Musculoskeletal: States: no symptoms reported Skin: States: no symptoms reported Neurological: States: no symptoms reported Endocrine: States: no symptoms reported Hematologic/Lymphatic: States: no symptoms reported Past Medical History (General) - Patient Medical History Hx Seizures: No Hx Stroke: No Hx Dementia: No Hx Asthma: Yes Hx of COPD: Yes Hx Cardiac Disorders: No Hx Congestive Heart Failure: No Hx Pacemaker: No Hx Hypertension: Yes Hx Thyroid Disease: No Hx Diabetes: No Hx Gastroesophageal Reflux: No Hx Renal Disease: No Hx Cancer: No Hx of HIV: No Hx Hepatitis C: No Hx MRSA: No - Vaccination History Hx Tetanus, Diphtheria Vaccination: No Hx Influenza Vaccination: No Hx Pneumococcal Vaccination: No - Social History Hx Tobacco Use: Yes Hx Chewing Tobacco Use: No Hx Alcohol Use: Yes Hx Substance Use: Yes Hx Substance Use Treatment: No Hx Depression: Yes Hx Physical Abuse: No Hx Emotional Abuse: No Hx Suspected Abuse: No - Female History Hx Last Menstrual Period: 05/09/18 Patient : No Family Medical History - Family History Mother Family History: Unknown Living Status: Still Living Hx Family Hypertension: Yes Hx Family Diabetes: Yes - hypoglycemic Hx Family Cancer: Yes - mom and sister-cancer cervix Hx Family;Other: chronic anemia-mom ? thallasemia. 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 Copy, ED Discharge - Work Release, Patient Portal Self Enrollment Diet: resume usual diet Activity: increase activity as tolerated Referrals: Bernice Bianchi, CANAL STRUCTURE OPERATOR [Primary Care Provider] - 1-2 Weeks Prescriptions: Albuterol Inhaler [Ventolin Hfa Inhaler] 2 puff INH Q4HR 10 Days inh Azithromycin Tab [Zithromax] 500 mg PO QDAC #3 tab Home Medications: Ambulatory Orders Acetamin W/Cod #3 Tab [Tylenol w/CODEINE #3] 1 ea PO Q4H PRN #20 tab 04/17/19 Clindamycin HCl 300 mg PO Q6HR 7 Days cap 04/17/19 Sertraline HCl [Zoloft] mg PO DAILY 04/17/19 Albuterol Inhaler [Ventolin Hfa Inhaler] 2 puff INH Q4HR 10 Days inh 05/28/19 Azithromycin Tab [Zithromax] 500 mg PO QDAC #3 tab 05/28/19
[2019-05-28 10:20] VITALS: BP 154/89; TEMP 97.9; O2SAT 97
== END 2019-05-28 10:14 | disposition home or self-care (01) ==
LOC: ER 09:05
DX: J44.0 Chronic obstructive pulmonary disease with (acute) lower respiratory infection (principal); J20.9 Acute bronchitis, unspecified; J30.2 Other seasonal allergic rhinitis; F32.9 Major depressive disorder, single episode, unspecified; I10 Essential (primary) hypertension; Z87.891 Personal history of nicotine dependence; Z79.899 Other long term (current) drug therapy; Z88.0 Allergy status to penicillin; Z88.2 Allergy status to sulfonamides
CPT/HCPCS: 71045; 87070; 87502; 87880; J2930

== ENCOUNTER 2019-07-06 14:04 | Emergency (ER) | payer SELFPAY ==
[2019-07-06] MEDS ORDERED: CLINDAMYCIN IV 900MG 900 MG in PREMIX BAG 1 BAG IVPB ONE (14:21)
[2019-07-06] MEDS ORDERED: MORPHINE SULFATE INJ 10 MG/ML VIAL IV ONE (14:22)
[2019-07-06] MEDS ORDERED: ONDANSETRON INJ 4 MG/2 ML VIAL IV ONE (14:22)
[2019-07-06] MEDS ORDERED: SODIUM CHLORIDE 0.9% 1000ML 1,000 ML IVS ONE (14:22)
--- NOTE | 2019-07-06 14:26 | ED.PDOC ---
History of Present Illness - General Chief Complaint: Dental/Mouth Time Seen by Provider: 07/06/19 14:19 Additional Information: Patient is a 38-year-old female who presents to the ED with chief complaint of right lower jaw pain for the past 3 days. Patient indicates her pain is constant and is 10 out of 10 in intensity. Patient denies nausea, vomiting, fever, chills, cough. Patient indicates she has bad teeth in general and does not have or see a dentist. Patient indicates that swallowing is painful for her but she is able to swallow. Patient denies similar symptoms in the past and indicates she has no other medical issues or concerns at this time. - History of Present Illness Allergies/Adverse Reactions: Allergies Amoxicillin [From Amoxil] Allergy (Verified 05/28/19 09:37) Penicillins Allergy (Verified 05/28/19 09:37) Sulfa Antibiotics Allergy (Verified 05/28/19 09:37) Home Medications: Ambulatory Orders Acetamin W/Cod #3 Tab [Tylenol w/CODEINE #3] 1 ea PO Q4H PRN #20 tab 04/17/19 Clindamycin HCl 300 mg PO Q6HR 7 Days cap 04/17/19 Sertraline HCl [Zoloft] mg PO DAILY 04/17/19 Albuterol Inhaler [Ventolin Hfa Inhaler] 2 puff INH Q4HR 10 Days inh 05/28/19 Azithromycin Tab [Zithromax] 500 mg PO QDAC #3 tab 05/28/19 Review of Systems - Review of Systems Constitutional: States: no symptoms reported. Denies: chills, fever EENTM: States: see HPI Respiratory: States: no symptoms reported. Denies: cough, short of breath Cardiology: Denies: chest pain, palpitations Gastrointestinal/Abdominal: States: no symptoms reported. Denies: abdominal pain, nausea, vomiting Genitourinary: States: no symptoms reported Musculoskeletal: States: no symptoms reported Skin: States: no symptoms reported. Denies: rash Neurological: States: no symptoms reported All other Systems: Reviewed and Negative Past Medical History (General) - Patient Medical History Hx Seizures: No Hx Stroke: No Hx Dementia: No Hx Asthma: Yes Hx of COPD: Yes Hx Cardiac Disorders: No Hx Congestive Heart Failure: No Hx Pacemaker: No Hx Hypertension: Yes Hx Thyroid Disease: No Hx Diabetes: No Hx Gastroesophageal Reflux: No Hx Renal Disease: No Hx Cancer: No Hx of HIV: No Hx Hepatitis C: No Hx MRSA: No Surgical History: cholecystectomy, other - Vaccination History Hx Tetanus, Diphtheria Vaccination: No Hx Influenza Vaccination: No Hx Pneumococcal Vaccination: No Immunizations Up to Date: No - Social History Hx Tobacco Use: Yes Hx Chewing Tobacco Use: No Hx Alcohol Use: No Hx Substance Use: No Hx Substance Use Treatment: No Hx Depression: No Hx Physical Abuse: No Hx Emotional Abuse: No Hx Suspected Abuse: No - Female History Patient is a Female of Child Bearing Age (10 -59 yrs old): Yes Hx Last Menstrual Period: 05/09/18 Patient : No Family Medical History - Family History Mother Family History: Unknown Living Status: Still Living Hx Family Hypertension: Yes Hx Family Diabetes: Yes - hypoglycemic Hx Family Cancer: Yes - mom and sister-cancer cervix Hx Family;Other: chronic anemia-mom ? thallasemia. Physical Exam - Physical Exam General Appearance: Alert, No apparent distress, Obese, Other - Uncomfortable Nasal Exam: normal inspection Throat Exam: dental tenderness - Widespread dental decay with obvious dental jackie right mandibular molar adjacent to the area of edema. Surrounding gums are normal in appearance without erythema or edema., mandibular swelling - Mild- moderate facial edema over the right mandibular and submandibular regions. Moderate tenderness to palpation, mild erythema., other - Normal voice Neck: non-tender, full range of motion, supple, normal inspection Cardiovascular/Respiratory: regular rate, rhythm, no M/R/G, normal peripheral pulses, no JVD, normal breath sounds, no respiratory distress Neurologic: alert, normal mood/affect, oriented x 3 Skin Exam: normal color, warm/dry Progress - Progress Progress: 07/06/19 14:29 Differential diagnosis includes but is not limited to dental pain, dental caries, dental abscess, soft tissue infection 07/06/19 16:[address] has resulted which shows a dental abscess with associated moderate facial and soft tissue cellulitis. Patient's labs are unremarkable but given patient's difficulty swallowing I believe the patient will need admission for IV antibiotics. Patient will also need OMFS consultation for anticipated dental extraction as the source of patient's infection. Will transfer to a facility with OMFS. Patient is comfortable and stable at this time and she has received clindamycin 900 mg IV. Patient is medically clear for transfer once accepted to a facility. 07/06/19 17:33 I have discussed with [facility] OMFS service who indicates they will consult if patient is transferred to their hospital. Dr. Wu in [facility] ED has auto- accepted patient ED to ED via the transfer line. - Results/Orders Results/Orders: 07/06/19 14:21 Hold Metformin x 48Hrs [id number] Laboratory Results WBC 5.8 K/mm3 (4.8-10.8) 07/06/19 14:28 RBC 4.66 M/mm3 (4.20-5.40) 07/06/19 14:28 Hgb 10.8 gm/dL (12.0-16.0) L 07/06/19 14:28 Hct 33.3 % (36.0-47.0) L 07/06/19 14:28 MCV 71.5 fl (81.0-99.0) L 07/06/19 14:28 MCH 23.1 pg (27.0-31.0) L 07/06/19 14:28 MCHC 32.3 g/dL (33.0-37.0) L 07/06/19 14:28 RDW 14.7 % (11.5-14.5) H 07/06/19 14:28 Plt Count 229 K/mm3 (130-400) 07/06/19 14:28 MPV 7.8 fl (7.40-10.4) 07/06/19 14:28 Absolute Neuts (auto) 3.80 K/uL (1.8-6.8) 07/06/19 14:28 Absolute Lymphs (auto) 1.20 K/uL (1.0-3.4) 07/06/19 14:28 Absolute Monos (auto) 0.50 K/uL (0.2-0.8) 07/06/19 14:28 Absolute Eos (auto) 0.30 K/uL (0.0-0.4) 07/06/19 14:28 Absolute Basos (auto) 0.00 K/uL (0.0-0.1) 07/06/19 14:28 Neutrophils % 64.9 % (42.0-78.0) 07/06/19 14:28 Lymphocytes % 21.0 % (20.0-50.0) 07/06/19 14:28 Monocytes % 8.7 % (2.0-9.0) 07/06/19 14:28 Eosinophils % 4.9 % (1.0-5.0) 07/06/19 14:28 Basophils % 0.5 % (0.0-2.0) 07/06/19 14:28 Normal RBC Morphology 2+microcytosis 07/06/19 14:28 Sodium 138 mmol/L (135-145) 07/06/19 14:28 Potassium 3.6 mmol/L (3.6-5.0) 07/06/19 14:28 Chloride 104 mmol/L (101-111) 07/06/19 14:28 Carbon Dioxide 26 mmol/L (21-31) 07/06/19 14:28 Anion Gap 11.6 (12-18) L 07/06/19 14:28 BUN 8 mg/dL (7-18) 07/06/19 14:28 Creatinine 0.62 mg/dL (0.6-1.3) 07/06/19 14:28 BUN/Creatinine Ratio 12.9 (10-20) 07/06/19 14:28 Random Glucose 91 mg/dL (70-105) 07/06/19 14:28 Serum Osmolality 273.6 mOsm/L (275-295) L 07/06/19 14:28 Lactic Acid 0.6 mmol/L (0.5-2.2) 07/06/19 14:28 Calcium 8.7 mg/dL (8.4-10.2) 07/06/19 14:28 Departure - Departure Clinical Impression: Dental abscess, Cellulitis of neck, Facial cellulitis Time of Disposition: 17:18 Condition: Fair Home Medications: Ambulatory Orders Acetamin W/Cod #3 Tab [Tylenol w/CODEINE #3] 1 ea PO Q4H PRN #20 tab 04/17/19 Clindamycin HCl 300 mg PO Q6HR 7 Days cap 04/17/19 Sertraline HCl [Zoloft] mg PO DAILY 04/17/19 Albuterol Inhaler [Ventolin Hfa Inhaler] 2 puff INH Q4HR 10 Days inh 05/28/19 Azithromycin Tab [Zithromax] 500 mg PO QDAC #3 tab 05/28/19 Transfer to Outside Facility - Transfer Information Decision to Transfer Date: 07/06/19 Decision to Transfer Time: 17:18 Reason for Transfer: required specialist not available Accepting Provider:: Dr. Wu Accepting Facility: [facility]
[2019-07-06] MEDS ORDERED: CLINDAMYCIN IV 900MG 50 ML IVPB ONE (14:28)
[2019-07-06] MEDS ORDERED: METOCLOPRAMIDE HCL INJ 10 MG/2 ML VIAL IV ONE (15:06)
--- NOTE | 2019-07-06 16:05 | CT ---
EXAM DESCRIPTION: Soft Tissue Neck w/Contrast CLINICAL HISTORY: right mandibular dental abscess COMPARISON: None. TECHNIQUE: Postcontrast CT images of the neck soft tissues are obtained with coronal and sagittal reconstructed images. This exam was performed according to our departmental dose-optimization program, which includes automated exposure control, adjustment of the mA and/or kV according to patient size and/or use of iterative reconstruction technique . FINDINGS: Mucosal thickening in the floor the right maxillary sinus measuring 2.2 cm with minimal mucosal thickening in the left maxillary sinus. Mastoid air cells are unremarkable. Parotid glands are unremarkable. Submandibular glands are normal size. Mild motion artifact through the oropharynx and streak artifact from dental work partly secured visualization. Asymmetric soft tissue thickening in the right posterior pharynx to base of the tongue is seen without enhancing soft tissue or abnormal fluid collection. Enlarged lymph nodes in the right submandibular region measure maximum 1.5 cm. Several submental lymph nodes measuring less than 1 cm are seen. Left submandibular and bilateral cervical chain lymph nodes measure up to 1 cm. The epiglottis is unremarkable. Vocal cords are grossly unremarkable. Thyroid is normal. No abnormal peripherally enhancing fluid collection in the soft tissues. Mild soft tissue swelling and subcutaneous soft tissue fat stranding adjacent to the right mandible with mild thickening of the platysma is seen. Large caries of the most posterior right mandibular molar, tooth #31 with periapical lucency measuring 2 to 3 mm adjacent to the mental nerve. Small area of periosteal thickening with underlying lucency on the medial aspect of the mandible in this region measures 3 x 11 mm image 39 of series 2. No fluid attenuation or abscess in the adjacent soft tissues. Multiple caries are seen involving the maxillary teeth mainly incisors and canines. IMPRESSION: Large caries involving the most posterior right mandibular molar with probable periapical abscess and tract extending through the medial aspect of the mandible. Overlying periosteal reaction is seen without CT evidence of drainable soft tissue fluid collection or abscess. Moderate cellulitis of the right face in the region of the mandible and upper neck. Enlarged reactive right submandibular lymphadenopathy is seen. Multiple caries of the maxilla are seen. Subacute chronic right greater than left maxillary sinus disease is seen. Electronically signed by: Hollis Reno MD 07/06/2019 4:03 PM CDT
[2019-07-06 17:58] VITALS: BP 167/112; TEMP 98.3; O2SAT 99
== END 2019-07-06 17:55 | disposition home or self-care (01) ==
LOC: ER 14:04
DX: K04.7 Periapical abscess without sinus (principal); L03.211 Cellulitis of face; L03.221 Cellulitis of neck; K02.9 Dental caries, unspecified; J44.9 Chronic obstructive pulmonary disease, unspecified; I10 Essential (primary) hypertension; Z87.891 Personal history of nicotine dependence; Z88.0 Allergy status to penicillin; Z88.2 Allergy status to sulfonamides; Z79.899 Other long term (current) drug therapy
CPT/HCPCS: 70491; 80048; 83605; 85025; J2270; J2405; J2765; J3490; J7030